=== PATIENT | female | born 1950 | race African-American/Black ===

== ENCOUNTER 2018-12-10 14:04 | Emergency (ER) | payer BC, MEDICAID ==
[~2018-12-10] VITALS: Ht 160 cm; Wt 90.7 kg
[2018-12-10 15:30] VITALS: BP 179/90
[2018-12-10] MEDS ORDERED: ALBUTEROL SULF 2.5 MG/0.5ML(0.5%) NEB SOLN NEB ONE (17:00)
[2018-12-10] MEDS ORDERED: IPRATROPIUM BROM 0.5 MG/2.5ML INH SOL NEB ONE (17:00)
== END 2018-12-10 17:57 | disposition home or self-care (01) ==
LOC: ER 14:16
DX: K04.7 Periapical abscess without sinus (principal); J45.909 Unspecified asthma, uncomplicated; I10 Essential (primary) hypertension; Z90.710 Acquired absence of both cervix and uterus
CPT/HCPCS: 94640; 99283; J7611; J7644